=== PATIENT | male | born 1985 | race Caucasian/White ===

== ENCOUNTER 2020-02-17 12:39 | Emergency (ER) | payer OTHER ==
[~2020-02-17] VITALS: Ht 170.2 cm; Wt 137.0 kg
[2020-02-17 12:44] VITALS: BP 165/63
[2020-02-17 15:20] LABS: BASOPHILS # (AUTO) 0.1 K/uL (0.00-0.22); BASOPHILS % (AUTO) 0.7 % (0.0-2.0); EOSINOPHILS # (AUTO) 0.2 K/uL (0-0.4); EOSINOPHILS % (AUTO) 2.2 % (0.0-4.0); HEMATOCRIT 48.2 % (36-52); HEMOGLOBIN 16.4 g/dL (12.0-18.0); LYMPHOCYTES # (AUTO) 2.4 K/uL (2.0-11.5); LYMPHOCYTES % (AUTO) 22.3 % (20.5-51.1); MEAN CORPUSCULAR HEMOGLOBIN 32 pg (27-31); MEAN CORPUSCULAR HGB CONC 34 g/dL (33-37); MEAN CORPUSCULAR VOLUME 92.7 fL (80-94); MONOCYTES # (AUTO) 0.5 K/uL (0.8-1.0); MONOCYTES % (AUTO) 4.7 % (1.7-9.3); NEUTROPHILS # (AUTO) 7.4 K/uL (1.8-7.7); NEUTROPHILS % (AUTO) 70.1 % (42.2-75.2); PLATELET COUNT (AUTO) 229 K/uL (140-450); RED CELL DISTRIBUTION WIDTH 13.7 % (11.6-13.7); WHITE BLOOD COUNT (AUTO) 10.6 K/uL (4.8-10.8)
[2020-02-17 15:38] LABS: ALBUMIN 4.1 g/dL (3.4-5.0); ANION GAP 16.1 (8-16); CARBON DIOXIDE 25.8 mmol/L (21-32); POTASSIUM 3.9 mmol/L (3.5-5.1); TOTAL BILIRUBIN 0.5 mg/dL (0.0-1.0)
--- NOTE | 2020-02-17 15:58 | NUR ---
Patient discharged with v/s stable. Written and verbal after care instructions given and explained. Patient alert, oriented and verbalized understanding of instructions. Ambulatory with steady gait. All questions addressed prior to discharge. ID band removed. Patient advised to follow up with PMD. Rx of Metformin given. Patient educated on indication of medication including possible reaction and side effects. Opportunity to ask questions provided and answered.
[2020-02-17 16:17] LABS: BARBITURATE, URINE NEGATIVE ng/ml (NEG <=200); BENZODIAZEPINE, URINE NEGATIVE ng/mL (NEG <=200); CANNABINOID, URINE POSITIVE ng/mL (NEG <=50); COCAINE, URINE NEGATIVE ng/mL (NEG <=300); OPIATE, URINE NEGATIVE ng/mL (NEG <=2000); PHENCYCLIDINE SCREEN,URINE NEGATIVE ng/mL (NEG <=25)
== END 2020-02-17 15:58 | disposition home or self-care (01) ==
LOC: MED 12:39
DX: R42 Dizziness and giddiness (principal); E11.65 Type 2 diabetes mellitus with hyperglycemia; I10 Essential (primary) hypertension; F12.90 Cannabis use, unspecified, uncomplicated
CPT/HCPCS: 36415; 71045; 80053; 80305; 84484; 85025; 93005; 99285

== ENCOUNTER 2021-04-02 14:04 | Emergency (ER) | payer OTHER ==
[~2021-04-02] VITALS: Ht 170.2 cm; Wt 113.4 kg
[2021-04-02 14:10] VITALS: BP 145/10
--- NOTE | 2021-04-02 14:22 | NUR ---
35/M AMBULATED TO BED 3, C/O COUGH AND SOB X3 DAYS, REPORTS TAKING MUCINEX WITH NO RELIEF. DENIES FEVERS, CHILLS, CP, DENIES RECENT SICK CONTACTS. MEDHX: DM, HTN ALLERGIES: NKA
[2021-04-02] MEDS ORDERED: ALBUTEROL 0.083% 2.5 MG/3 ML NEBU INH ONE (14:25)
[2021-04-02] MEDS ORDERED: ALBUTEROL SULFATE/IPRATROPIU 3 ML SOL IH ONE (14:25)
[2021-04-02] MEDS ORDERED: predniSONE 20 MG TAB PO ONE (14:25)
[2021-04-02] MEDS ORDERED: PRED20TA5 PO (14:28)
[2021-04-02] MEDS ORDERED: ALBU0.0912 IH (14:28)
--- NOTE | 2021-04-02 14:29 | NUR ---
RT AT BEDSIDE TO GIVE BREATHING TREATMENT
[2021-04-02 14:30] VITALS: BP 138/96
--- NOTE | 2021-04-02 15:00 | NUR ---
Patient discharged with v/s stable. Written and verbal after care instructions given and explained. Patient alert, oriented and verbalized understanding of instructions. Ambulatory with steady gait. All questions addressed prior to discharge. ID band removed. Patient advised to follow up with PMD. Rx of ALBUTEROL,PREDNISONE given. Patient educated on indication of medication including possible reaction and side effects. Opportunity to ask questions provided and answered.
== END 2021-04-02 15:00 | disposition home or self-care (01) ==
LOC: MED 14:04
DX: R06.02 Shortness of breath (principal); R05.9 Cough, unspecified; E11.9 Type 2 diabetes mellitus without complications; I10 Essential (primary) hypertension; F12.90 Cannabis use, unspecified, uncomplicated
CPT/HCPCS: 94640; 99283; J7512; J7613